=== PATIENT | female | born 1995 | race American Indian/Alaskan Native ===

== ENCOUNTER 2021-11-07 18:01 | Outpatient (CLI) | payer MEDICAID | END 2021-11-07 18:02 | disposition home or self-care (01) | LOC: LAB 18:01 | PROVIDERS: ATTEND Advanced Practice Midwife | DX: O26.893 Other specified pregnancy related conditions, third trimester (principal); O99.513 Diseases of the respiratory system complicating pregnancy, third trimester; J45.909 Unspecified asthma, uncomplicated; Z67.41 Type O blood, Rh negative; Z3A.29 29 weeks gestation of pregnancy | CPT/HCPCS: 85461; 86850; 86900; 86901; 96372; J2790 ==